=== PATIENT | male | born 1970 | race Two or more races ===

== ENCOUNTER 2017-02-07 08:16 | Inpatient (IN) | payer OTHER ==
[2017-02-07] VITALS (9 sets, daily range): BP systolic 139–164; BP diastolic 90–114
[~2017-02-07] VITALS: Ht 175.3 cm; Wt 93.0 kg
[2017-02-07] MEDS ORDERED: NKM (08:23)
[2017-02-07] MEDS ORDERED: Albuterol ud Inhalation HHN ONE (08:30)
[2017-02-07] MEDS ORDERED: Enalaprilat 2.5mg/2ml Inj IV ONE (08:30)
[2017-02-07] MEDS ORDERED: Aspirin Baby 81mg ORAL ONE (08:30)
[2017-02-07 08:57] LABS: APPEARANCE,URINE CLEAR; KETONES,URINE NEGATIVE (NEGATIVE); LEUKOCYTE ESTERASE ,URINE 1+ (NEGATIVE); NITRITE,URINE NEGATIVE (NEGATIVE); PH,URINE 7 (4.5-8.0); PROTEIN,URINE NEGATIVE (NEGATIVE); UROBILINOGEN,URINE 1 MG/DL (0.0-1.0)
[2017-02-07 08:59] LABS: MEAN CORPUSCULAR HEMOGLOBIN 33.1 PG (27.0-31.0); MEAN CORPUSCULAR HGB CONC 32.3 G/DL (32.0-36.0); MEAN CORPUSCULAR VOLUME 102 FL (80-99); MEAN PLATELET VOLUME 11.5 FL (6.5-10.1); PLATELET COUNT 57 K/UL (150-450); RED BLOOD COUNT 4.64 M/UL (4.70-6.10); RED CELL DISTRIBUTION WIDTH 12.7 % (11.6-14.8); WHITE BLOOD COUNT 4.5 K/UL (4.8-10.8)
[2017-02-07 09:17] LABS: BACTERIA,URINE OCCASIONAL /HPF; RBC,URINE 0-2 /HPF (0 - 0); SQUAMOUS EPITHELIAL CELL,UR OCCASIONAL /LPF (NONE/OCC); WBC,URINE 0-2 /HPF (0 - 0)
[2017-02-07 09:21] LABS: BAND NEUTROPHILS % (MANUAL) 0 % (0-8); BASOPHILS % (MANUAL) 0 % (0-2); EOSINOPHILS % (MANUAL) 1 % (0-3); LYMPHOCYTES % (MANUAL) 19 % (20-45); MACROCYTES 1+; NEUTROPHILS % (MANUAL) 68 % (45-75); PLATELET ESTIMATE DECREASED; PLATELET MORPHOLOGY NORMAL; TOTAL CELLS COUNTED 100
[2017-02-07 09:28] LABS: ALANINE AMINOTRANSFERASE 84 U/L (3-41); ALBUMIN/GLOBULIN RATIO 0.8 (1.0-2.7); ANION GAP 10 (5-15); ASPARTATE AMINO TRANSFERASE 189 U/L (5-40); CARBON DIOXIDE 29 mEQ/L (20-30); CHLORIDE 104 mEQ/L (98-107); CREATININE 0.7 mg/dL (0.7-1.2); GLOMERULAR FILTRATION RATE > 60 mL/min (>60); HEMOLYSIS 10; SODIUM 143 mEQ/L (135-145); TOTAL PROTEIN 7.3 g/dL (6.6-8.7)
--- NOTE | 2017-02-07 09:28 | Emergency Room Report ---
History of Present Illness General Chief Complaint: Chest Pain Source: Patient Present Illness HPI Patient is a 46-year-old male who presented after increased chest pain. Patient gradual onset of symptoms. The patient reports having had generalized body aches. This been present for approximately 2 months intermittently. Patient associated shortness of breath. Patient reports having prior history of hypertension but does not take medications. Patient reports being a smoker. He denies any fever. Allergies: Coded Allergies: No Known Allergies (Unverified , 02/07/17) Patient History Past Medical History: see triage record Reviewed Nursing Documentation: PMH: Agreed, PSxH: Agreed Nursing Documentation-PMH Past Medical History: No History, Except For Hx Hypertension: Yes Hx Diabetes: Yes Review of Systems All Other Systems: negative except mentioned in HPI Physical Exam Vital Signs Date Time Temp Pulse Resp B/P (MAP) Pulse Ox O2 Delivery O2 Flow Rate FiO2 02/07/17 08:20 97.0 95 23 164/104 98 Room Air 02/07/17 09:00 21 Sp02 EP Interpretation: reviewed, normal General Appearance: normal inspection, well appearing, no apparent distress, alert, GCS 15 Head: atraumatic ENT: normal ENT inspection, hearing grossly normal, normal voice Neck: normal inspection, full range of motion, supple, no bony tend Respiratory: normal inspection, normal breath sounds, no respiratory distress, no retraction, wheezing Cardiovascular #1: regular rate, rhythm, no edema Gastrointestinal: normal inspection, normal bowel sounds, non tender, soft, no guarding, no hernia Genitourinary: no CVA tenderness Musculoskeletal: normal inspection, back normal, normal range of motion, swelling Neurologic: normal inspection, alert, oriented x3, responsive, twx operator III-XII nml as tested, speech normal Psychiatric: normal inspection, judgement/insight normal, mood/affect normal Skin: normal inspection, normal color, no rash Medical Decision Making Diagnostic Impression: Primary Impression: COPD (chronic obstructive pulmonary disease) Additional Impressions: CHF (congestive heart failure) Thrombocytopenia ER Course Patient presented for chest pain. Differential diagnosis included but was not limited to acute coronary syndrome, pulmonary embolism, pneumonia, aortic dissection, shingles, pneumothorax, aortic dissection, esophageal rupture, pericarditis. Because of complexity of patient's case laboratory testing and imaging studies were ordered.EKG interpreted by me showed normal sinus rhythm with a rate of [address] or T wave changes.Patient was given breathing treatment as well as IV Lasix . The patient was also given aspirin. Patient subsequently noted to have evidence of thrombocytopenia. Dr. Munoz was contacted for inpatient management due to need for inpatient monitoring and treatment. Labs Test 02/07/17 08:17 02/07/17 08:18 02/07/17 08:30 Urine Opiates Screen Negative (NEGATIVE) Urine Barbiturates Screen Negative (NEGATIVE) Phencyclidine (PCP) Screen Negative (NEGATIVE) Urine Amphetamines Screen Negative (NEGATIVE) Urine Benzodiazepines Screen Negative (NEGATIVE) Urine Cocaine Screen Negative (NEGATIVE) Urine Marijuana (THC) Screen Positive (NEGATIVE) Urine Color Pale yellow Urine Appearance Clear Urine pH 7 (4.5-8.0) Urine Specific [place] 1.010 (1.005-1.035) Urine Protein Negative (NEGATIVE) Urine Glucose (UA) 2+ (NEGATIVE) Urine Ketones Negative (NEGATIVE) Urine Occult Blood Negative (NEGATIVE) Urine Nitrite Negative (NEGATIVE) Urine Bilirubin Negative (NEGATIVE) Urine Urobilinogen 1 MG/DL (0.0-1.0) Urine Leukocyte Esterase 1+ (NEGATIVE) Urine RBC 0-2 /HPF (0 - 0) Urine WBC 0-2 /HPF (0 - 0) Urine Squamous Epithelial Cells Occasional /LPF Urine Bacteria Occasional /HPF (NONE) White Blood Count 4.5 K/UL (4.8-10.8) Red Blood Count 4.64 M/UL (4.70-6.10) Hemoglobin 15.4 G/DL (14.2-18.0) Hematocrit 47.5 % (42.0-52.0) Mean Corpuscular Volume 102 FL (80-99) Mean Corpuscular Hemoglobin 33.1 PG (27.0-31.0) Mean Corpuscular Hemoglobin Concent 32.3 G/DL (32.0-36.0) Red Cell Distribution Width 12.7 % (11.6-14.8) Platelet Count 57 K/UL (150-450) Mean Platelet Volume 11.5 FL (6.5-10.1) Neutrophils (%) (Auto) % (45.0-75.0) Lymphocytes (%) (Auto) % (20.0-45.0) Monocytes (%) (Auto) % (1.0-10.0) Eosinophils (%) (Auto) % (0.0-3.0) Basophils (%) (Auto) % (0.0-2.0) Differential Total Cells Counted 100 Neutrophils % (Manual) 68 % (45-75) Lymphocytes % (Manual) 19 % (20-45) Monocytes % (Manual) 12 % (1-10) Eosinophils % (Manual) 1 % (0-3) Basophils % (Manual) 0 % (0-2) Band Neutrophils 0 % (0-8) Platelet Estimate Decreased Platelet Morphology Normal Macrocytosis 1+ Sodium Level 143 mEQ/L (135-145) Potassium Level 4.0 mEQ/L (3.4-4.9) Chloride Level 104 mEQ/L (98-107) Carbon Dioxide Level 29 mEQ/L (20-30) Anion Gap 10 (5-15) Blood Urea Nitrogen 11 mg/dL (7-23) Creatinine 0.7 mg/dL (0.7-1.2) Estimat Glomerular Filtration Rate > 60 mL/min (>60) Glucose Level 193 mg/dL (74-106) Total Bilirubin 0.8 mg/dL (0.0-1.2) Aspartate Amino Transf (AST/SGOT) 189 U/L (5-40) Alanine Aminotransferase (ALT/SGPT) 84 U/L (3-41) Alkaline Phosphatase 111 U/L (40-129) Total Creatine Kinase 172 U/L (38-174) Troponin I 0.004 ng/mL (0.000-0.056) Pro-B-Type Natriuretic Peptide 12 pg/mL (0-125) Total Protein 7.3 g/dL (6.6-8.7) Albumin 3.4 g/dL (3.5-5.2) Globulin 3.9 g/dL Albumin/Globulin Ratio 0.8 (1.0-2.7) EKG Diagnostic Results Rate: normal - 95 Rhythm: NSR ST Segments: no acute changes Rhythm Strip Diag. Results EP Interpretation: yes Rhythm: NSR, no PVC's, no ectopy Last Vital Signs Date Time Temp Pulse Resp B/P (MAP) Pulse Ox O2 Delivery O2 Flow Rate FiO2 02/07/17 09:23 95 20 154/102 100 Room Air 02/07/17 09:05 21 02/07/17 08:20 97.0 Status: unchanged Condition: Serious Referrals: NOT CHOSEN IPA/MD,REFERRING (PCP) Silvio Leggett Feb 07, 2017 09:28
--- NOTE | 2017-02-07 10:07 | Diagnostic Imaging Report ---
Indication: Shortness of breath Technique: XRAY CHEST 1 V Comparison: None Findings: Cardiac silhouette is prominent. There is central pulmonary vascular congestion and mild interstitial edema. There is a chronic appearing right eighth rib fracture deformity. There is no obvious pleural effusion. Impression: Cardiomegaly with central pulmonary vascular congestion and mild interstitial edema.
[2017-02-07 10:15] LABS: CALCIUM 9.2 mg/dL (8.6-10.2)
[2017-02-07 10:25] LABS: CKMB 3.5 ng/mL (< 6.7)
[2017-02-07] MEDS ORDERED: Nitroglycerin Subl 0.4mg tab SL PRN (15:45)
[2017-02-07] MEDS: NovoLOG Insulin Flexpen SUBQ SCH ×2 (17:06→21:00)
[2017-02-07] MEDS ORDERED: Morphine Sulfate 2mg/ml Inj IVP PRN (17:15)
--- NOTE | 2017-02-07 19:54 | Cardiology Progress Note ---
Assessment/Plan Assessment/Plan The patient is seen and examined, full consult note is dictated. Objective Last 24 Hour Vital Signs Date Time Temp Pulse Resp B/P (MAP) Pulse Ox O2 Delivery O2 Flow Rate FiO2 02/07/17 18:19 97.7 02/07/17 16:00 114 02/07/17 15:45 97.7 94 20 155/112 97 Room Air 02/07/17 15:14 83 20 159/114 100 Room Air 02/07/17 14:11 97.0 82 20 163/94 97 Room Air 02/07/17 14:10 82 20 162/99 97 Room Air 02/07/17 13:23 82 20 163/94 97 Room Air 02/07/17 11:38 82 20 163/103 100 Room Air 02/07/17 09:23 95 20 154/102 100 Room Air 02/07/17 09:05 110 22 100 Room Air 21 02/07/17 09:00 76 20 Room Air 02/07/17 09:00 21 02/07/17 09:00 76 20 97 Room Air 21 02/07/17 08:44 175/94 02/07/17 08:27 95 23 Room Air 02/07/17 08:27 23 164/104 98 Room Air 02/07/17 08:20 97.0 95 23 164/104 98 Room Air Intake and Output 02/07/17 02/08/17 19:00 07:00 Intake Total 240 ml Output Total 900 ml Balance -660 ml Intake Oral 240 ml Output Urine Total 900 ml Laboratory Tests Test 02/07/17 08:17 02/07/17 08:18 02/07/17 08:30 Urine Opiates Screen Negative (NEGATIVE) Urine Barbiturates Screen Negative (NEGATIVE) Phencyclidine (PCP) Screen Negative (NEGATIVE) Urine Amphetamines Screen Negative (NEGATIVE) Urine Benzodiazepines Screen Negative (NEGATIVE) Urine Cocaine Screen Negative (NEGATIVE) Urine Marijuana (THC) Screen Positive (NEGATIVE) H Urine Color Pale yellow Urine Appearance Clear Urine pH 7 (4.5-8.0) Urine Specific [place] 1.010 (1.005-1.035) Urine Protein Negative (NEGATIVE) Urine Glucose (UA) 2+ (NEGATIVE) H Urine Ketones Negative (NEGATIVE) Urine Occult Blood Negative (NEGATIVE) Urine Nitrite Negative (NEGATIVE) Urine Bilirubin Negative (NEGATIVE) Urine Urobilinogen 1 MG/DL (0.0-1.0) H Urine Leukocyte Esterase 1+ (NEGATIVE) H Urine RBC 0-2 /HPF (0 - 0) H Urine WBC 0-2 /HPF (0 - 0) Urine Squamous Epithelial Cells Occasional /LPF Urine Bacteria Occasional /HPF (NONE) White Blood Count 4.5 K/UL (4.8-10.8) L Red Blood Count 4.64 M/UL (4.70-6.10) L Hemoglobin 15.4 G/DL (14.2-18.0) Hematocrit 47.5 % (42.0-52.0) Mean Corpuscular Volume 102 FL (80-99) H Mean Corpuscular Hemoglobin 33.1 PG (27.0-31.0) H Mean Corpuscular Hemoglobin Concent 32.3 G/DL (32.0-36.0) Red Cell Distribution Width 12.7 % (11.6-14.8) Platelet Count 57 K/UL (150-450) L Mean Platelet Volume 11.5 FL (6.5-10.1) H Neutrophils (%) (Auto) % (45.0-75.0) Lymphocytes (%) (Auto) % (20.0-45.0) Monocytes (%) (Auto) % (1.0-10.0) Eosinophils (%) (Auto) % (0.0-3.0) Basophils (%) (Auto) % (0.0-2.0) Differential Total Cells Counted 100 Neutrophils % (Manual) 68 % (45-75) Lymphocytes % (Manual) 19 % (20-45) L Monocytes % (Manual) 12 % (1-10) H Eosinophils % (Manual) 1 % (0-3) Basophils % (Manual) 0 % (0-2) Band Neutrophils 0 % (0-8) Platelet Estimate Decreased L Platelet Morphology Normal Macrocytosis 1+ Sodium Level 143 mEQ/L (135-145) Potassium Level 4.0 mEQ/L (3.4-4.9) Chloride Level 104 mEQ/L (98-107) Carbon Dioxide Level 29 mEQ/L (20-30) Anion Gap 10 (5-15) Blood Urea Nitrogen 11 mg/dL (7-23) Creatinine 0.7 mg/dL (0.7-1.2) Estimat Glomerular Filtration Rate > 60 mL/min (>60) Glucose Level 193 mg/dL (74-106) H Calcium Level 9.2 mg/dL (8.6-10.2) Total Bilirubin 0.8 mg/dL (0.0-1.2) Aspartate Amino Transf (AST/SGOT) 189 U/L (5-40) H Alanine Aminotransferase (ALT/SGPT) 84 U/L (3-41) H Alkaline Phosphatase 111 U/L (40-129) Total Creatine Kinase 172 U/L (38-174) Creatine Kinase MB 3.5 ng/mL (< 6.7) Creatine Kinase MB Relative Index 2.0 Troponin I 0.004 ng/mL (0.000-0.056) Pro-B-Type Natriuretic Peptide 12 pg/mL (0-125) Total Protein 7.3 g/dL (6.6-8.7) Albumin 3.4 g/dL (3.5-5.2) L Globulin 3.9 g/dL Albumin/Globulin Ratio 0.8 (1.0-2.7) L WALLY LACY Feb 07, 2017 19:54
[2017-02-07] MEDS ORDERED: Heparin 5000 units/ml inj SUBQ SCH (21:00)
[2017-02-07] MEDS ORDERED: Morphine Sulfate 2mg/ml Inj IVP ONE (22:00)
[2017-02-07] MEDS: Solu-MEDROL 40mg Inj IVP SCH (22:21)
[2017-02-07] MEDS: Azithromycin 250mg tab ORAL SCH (22:21)
[2017-02-07] MEDS: dilTIAZem HCl CD 180mg cap ORAL SCH (22:26)
[2017-02-08] VITALS (8 sets, daily range): BP systolic 127–160; BP diastolic 72–115
[2017-02-08] MEDS ORDERED: Morphine Sulfate 2mg/ml Inj IVP PRN (00:30)
[2017-02-08] MEDS: NovoLOG Insulin Flexpen SUBQ SCH ×4 (06:10→20:56)
[2017-02-08] MEDS: Solu-MEDROL 40mg Inj IVP SCH ×4 (06:12→17:11)
[2017-02-08 06:32] LABS: MEAN CORPUSCULAR HEMOGLOBIN 34.9 PG (27.0-31.0); MEAN CORPUSCULAR VOLUME 103 FL (80-99); MEAN PLATELET VOLUME 12.7 FL (6.5-10.1); PLATELET COUNT 64 K/UL (150-450); RED BLOOD COUNT 4.33 M/UL (4.70-6.10); RED CELL DISTRIBUTION WIDTH 12.6 % (11.6-14.8); WHITE BLOOD COUNT 3.6 K/UL (4.8-10.8)
[2017-02-08 06:55] LABS: HEMOGLOBIN A1C 5.9 % (< 6.0)
[2017-02-08 07:02] LABS: ALANINE AMINOTRANSFERASE 83 U/L (3-41); ALBUMIN/GLOBULIN RATIO 0.6 (1.0-2.7); ANION GAP 16 (5-15); ASPARTATE AMINO TRANSFERASE 114 U/L (5-40); CALCIUM 9.3 mg/dL (8.6-10.2); CARBON DIOXIDE 24 mEQ/L (20-30); CHLORIDE 96 mEQ/L (98-107); CHOLESTEROL 230 mg/dL (< 200); CHOLESTEROL/HDL RATIO 4.9 (3.3-4.4); CREATININE 0.8 mg/dL (0.7-1.2); GLOMERULAR FILTRATION RATE > 60 mL/min (>60); HEMOLYSIS 6; POTASSIUM 4.2 mEQ/L (3.4-4.9); SODIUM 136 mEQ/L (135-145); TOTAL PROTEIN 9.1 g/dL (6.6-8.7)
[2017-02-08 07:25] LABS: BILIRUBIN,DIRECT 0.4 mg/dL (0.1-0.3)
--- NOTE | 2017-02-08 08:34 | History & Physical ---
History and Physical History & Physicial patient seen and examined. Dictation completed. Eleanor Munoz MD Feb 08, 2017 08:34
--- NOTE | 2017-02-08 08:40 | General Progress Note ---
Assessment/Plan Status: stable Assessment/Plan 1- Exertional SOB 2- DM 3- HTN Plan: Cardiology consulted pending echo Subjective ROS Limited/Unobtainable: No Cardiovascular: Reports: chest pain Respiratory: Reports: no symptoms Allergies: Coded Allergies: No Known Allergies (Unverified , 02/07/17) Objective Last 24 Hour Vital Signs Date Time Temp Pulse Resp B/P (MAP) Pulse Ox O2 Delivery O2 Flow Rate FiO2 02/08/17 07:51 96.1 70 20 127/72 98 Room Air 02/08/17 06:30 82 139/90 02/08/17 04:00 99.1 83 20 148/103 96 Room Air 21 02/08/17 03:53 74 02/08/17 02:46 83 20 148/103 Room Air 02/08/17 01:01 160/115 02/08/17 00:15 99.1 84 20 160/115 96 Room Air 02/07/17 22:26 85 158/98 02/07/17 20:17 95.0 83 20 158/98 95 Room Air 02/07/17 20:05 83 02/07/17 18:19 97.7 02/07/17 16:00 114 02/07/17 15:45 97.7 94 20 155/112 97 Room Air 02/07/17 15:14 83 20 159/114 100 Room Air 02/07/17 14:11 97.0 82 20 163/94 97 Room Air 02/07/17 14:10 82 20 162/99 97 Room Air 02/07/17 13:23 82 20 163/94 97 Room Air 02/07/17 11:38 82 20 163/103 100 Room Air 02/07/17 09:23 95 20 154/102 100 Room Air 02/07/17 09:05 110 22 100 Room Air 21 02/07/17 09:00 76 20 Room Air 02/07/17 09:00 21 02/07/17 09:00 76 20 97 Room Air 02/07/17 08:44 175/94 Intake and Output 02/08/17 02/09/17 19:00 07:00 Intake Total 240 ml Balance 240 ml Intake Oral 240 ml Laboratory Tests 02/07/17 21:10: Troponin I 0.007 02/08/17 05:15: Troponin I 0.005, White Blood Count 3.6L, Red Blood Count 4.33L, Hemoglobin 15.1 , Hematocrit 44.4, Mean Corpuscular Volume 103H, Mean Corpuscular Hemoglobin 34.9H, Mean Corpuscular Hemoglobin Concent 34.0, Red Cell Distribution Width 12.6, Platelet Count 64L, Mean Platelet Volume 12.7H, Neutrophils (%) (Auto) , Lymphocytes (%) (Auto) , Monocytes (%) (Auto) , Eosinophils (%) (Auto) , Basophils (%) (Auto) , Neutrophils % (Manual) [Pending], Lymphocytes % (Manual) [Pending], Platelet Estimate [Pending], Platelet Morphology [Pending], Sodium Level 136, Potassium Level 4.2, Chloride Level 96L, Carbon Dioxide Level 24, Anion Gap 16H, Blood Urea Nitrogen 11, Creatinine 0.8, Estimat Glomerular Filtration Rate > 60, Glucose Level 287H, Hemoglobin A1c 5.9, Calcium Level 9.3 , Magnesium Level 1.7, Total Bilirubin 1.2, Direct Bilirubin 0.4H, Aspartate Amino Transf (AST/SGOT) 114H, Alanine Aminotransferase (ALT/SGPT) 83H, Alkaline Phosphatase 96, Total Protein 9.1H, Albumin 3.5, Globulin 5.6, Albumin/Globulin Ratio 0.6L, Triglycerides Level 131, Cholesterol Level 230H, LDL Cholesterol 156.800H, HDL Cholesterol 47, Cholesterol/HDL Ratio 4.9H Height (Feet): 5 Height (Inches): 9.00 Weight (Pounds): 180 General Appearance: no apparent distress EENT: PERRL/EOMI Neck: supple Cardiovascular: normal rate Respiratory/Chest: lungs clear Abdomen: soft Extremities: non-tender Neurologic: drain tiler II-XII grossly normal Eleanor Munoz MD Feb 08, 2017 08:40
[2017-02-08] MEDS: dilTIAZem HCl CD 180mg cap ORAL SCH (09:00)
[2017-02-08] MEDS: Aspirin EC 81mg tab ORAL SCH (09:28)
[2017-02-08] MEDS: Azithromycin 250mg tab ORAL SCH (09:28)
[2017-02-08 11:04] LABS: BAND NEUTROPHILS % (MANUAL) 0 % (0-8); BASOPHILS % (MANUAL) 1 % (0-2); EOSINOPHILS % (MANUAL) 0 % (0-3); LYMPHOCYTES % (MANUAL) 14 % (20-45); MACROCYTES 1+; NEUTROPHILS % (MANUAL) 81 % (45-75); PLATELET ESTIMATE DECREASED; PLATELET MORPHOLOGY NORMAL; TOTAL CELLS COUNTED 100
[2017-02-08] MEDS: Ketorolac 30mg Inj IV PRN ×2 (12:02→21:05)
--- NOTE | 2017-02-08 23:10 | Cardiology Progress Note ---
Assessment/Plan Assessment/Plan 1. Dyspnea likely due to acute COPD exacerbation, continue Solumedrol inhalers, IV ABx. 2. HTN, on HCTZ and Diltiazem. 3. DM, benefits from ASA and statin long-term. Subjective Subjective Sinus rhythm at 74. Objective Last 24 Hour Vital Signs Date Time Temp Pulse Resp B/P (MAP) Pulse Ox O2 Delivery O2 Flow Rate FiO2 02/08/17 20:11 74 02/08/17 16:00 76 02/08/17 15:25 97.5 75 20 136/96 98 Room Air 02/08/17 12:00 72 02/08/17 11:25 96.9 72 20 153/98 94 Room Air 02/08/17 09:00 70 127/72 02/08/17 08:00 79 02/08/17 07:51 96.1 70 20 127/72 98 Room Air 02/08/17 06:30 82 139/90 02/08/17 04:00 99.1 83 20 148/103 96 Room Air 21 02/08/17 03:53 74 02/08/17 02:46 83 20 148/103 Room Air 02/08/17 01:01 160/115 02/08/17 00:15 99.1 84 20 160/115 96 Room Air Intake and Output 02/08/17 02/09/17 19:00 07:00 Intake Total 490 ml Balance 490 ml Intake Oral 490 ml # Voids 3 2D Echo: LVEF 50-55%, Grade I LVDD, Mild [place] Laboratory Tests Test 02/08/17 05:15 02/08/17 11:40 White Blood Count 3.6 K/UL (4.8-10.8) L Red Blood Count 4.33 M/UL (4.70-6.10) L Hemoglobin 15.1 G/DL (14.2-18.0) Hematocrit 44.4 % (42.0-52.0) Mean Corpuscular Volume 103 FL (80-99) H Mean Corpuscular Hemoglobin 34.9 PG (27.0-31.0) H Mean Corpuscular Hemoglobin Concent 34.0 G/DL (32.0-36.0) Red Cell Distribution Width 12.6 % (11.6-14.8) Platelet Count 64 K/UL (150-450) L Mean Platelet Volume 12.7 FL (6.5-10.1) H Neutrophils (%) (Auto) % (45.0-75.0) Lymphocytes (%) (Auto) % (20.0-45.0) Monocytes (%) (Auto) % (1.0-10.0) Eosinophils (%) (Auto) % (0.0-3.0) Basophils (%) (Auto) % (0.0-2.0) Differential Total Cells Counted 100 Neutrophils % (Manual) 81 % (45-75) H Lymphocytes % (Manual) 14 % (20-45) L Monocytes % (Manual) 4 % (1-10) Eosinophils % (Manual) 0 % (0-3) Basophils % (Manual) 1 % (0-2) Band Neutrophils 0 % (0-8) Platelet Estimate Decreased L Platelet Morphology Normal Macrocytosis 1+ Sodium Level 136 mEQ/L (135-145) Potassium Level 4.2 mEQ/L (3.4-4.9) Chloride Level 96 mEQ/L (98-107) L Carbon Dioxide Level 24 mEQ/L (20-30) Anion Gap 16 (5-15) H Blood Urea Nitrogen 11 mg/dL (7-23) Creatinine 0.8 mg/dL (0.7-1.2) Estimat Glomerular Filtration Rate > 60 mL/min (>60) Glucose Level 287 mg/dL (74-106) H Hemoglobin A1c 5.9 % (< 6.0) Calcium Level 9.3 mg/dL (8.6-10.2) Magnesium Level 1.7 mg/dL (1.7-2.5) Total Bilirubin 1.2 mg/dL (0.0-1.2) Direct Bilirubin 0.4 mg/dL (0.1-0.3) H Aspartate Amino Transf (AST/SGOT) 114 U/L (5-40) H Alanine Aminotransferase (ALT/SGPT) 83 U/L (3-41) H Alkaline Phosphatase 96 U/L (40-129) Troponin I 0.005 ng/mL (0.000-0.056) 0.001 ng/mL (0.000-0.056) Total Protein 9.1 g/dL (6.6-8.7) H Albumin 3.5 g/dL (3.5-5.2) Globulin 5.6 g/dL Albumin/Globulin Ratio 0.6 (1.0-2.7) L Triglycerides Level 131 mg/dL (< 150) Cholesterol Level 230 mg/dL (< 200) H LDL Cholesterol 156.800 mg/dL (< 100) H HDL Cholesterol 47 mg/dL (> 60) Cholesterol/HDL Ratio 4.9 (3.3-4.4) H Objective General Appearance: normal inspection, well appearing, no apparent distress, alert, GCS 15 Head: atraumatic ENT: normal ENT inspection, hearing grossly normal, normal voice Neck: normal inspection, No JVD. Respiratory: normal inspection, normal breath sounds, no respiratory distress, no retraction, wheezing Cardiovascular: regular rate, rhythm, no murmurs, gallops or rubs Gastrointestinal: normal inspection, normal bowel sounds, non tender, soft, no guarding, no hernia Genitourinary: no CVA tenderness Musculoskeletal: no swelling, clubbing or cyanosis WALLY LACY Feb 08, 2017 23:10
[2017-02-09] VITALS: BP 137/96
[2017-02-09] MEDS: Solu-MEDROL 40mg Inj IVP SCH ×4 (00:42→17:46)
--- NOTE | 2017-02-09 03:39 | History and Physical Report ---
DATE OF ADMISSION: 02/07/2017 SOURCE OF INFORMATION: The patient and EMR. HISTORY OF PRESENT ILLNESS: The patient is a 46-year-old male. He reported that for the last one and a half years, he has chest pain. He describes the pain as being precordial with no radiation. He reported that the pain gets worse by taking deep breath in and out. On top of it, the patient reported that he has not been able to seek medical advice as he had been taking care of his mother. At the time of evaluation, the patient denies any loss of consciousness or any dizziness. No shortness of breath. No abnormal bleeding. REVIEW OF SYSTEMS: All 12 elements of review of systems are reviewed with the patient. Pertinent positives and negatives are reported as above. MEDICATIONS: Home medications are reported none. Hospital medications including but not limited to amlodipine, aspirin, azithromycin, diltiazem, and sliding scale of insulin. PAST MEDICAL HISTORY: COPD, CHF, hypertension, actively smoking more than 20 pack-year. SOCIAL HISTORY: The patient is single. The patient is positive for cigarette smoking about average of 1 pack for the last 20 years. Denies history of illicit drug abuse. ALLERGIES: NKDA. FAMILY HISTORY: Reviewed and noncontributory. PHYSICAL EXAMINATION: VITAL SIGNS: Blood pressure 140/90, temperature 98.2, and pulse oximetry 98% on room air. HEAD AND NECK: Atraumatic and normocephalic. CHEST: Clear to auscultation. HEART: S1 and S2 heard. Regular rate and rhythm. ABDOMEN: Soft. No organomegaly. MUSCULOSKELETAL: No gross focal motor deficit. NEUROLOGY: The patient is awake, alert, and oriented x3. LABORATORY DATA: Laboratory results dated 02/07/2017, showed WBC 4.7, hemoglobin 15.4, and platelets 57. ALT 83 and AST 114. Urine drug screen positive for THC. ASSESSMENT AND PLAN: 1. Exertional shortness of breath. Differential diagnosis is cardiogenic versus upper respiratory tract infection. 2. Pancytopenia. 3. Substance abuse (positive for marijuana). 4. Abnormal liver function test, possibility of cirrhosis cannot be excluded. 5. Diabetes type 2, status unknown. 6. Gastrointestinal and deep vein thrombosis prophylaxis. PLAN OF CARE: We will initiate IV antibiotic. Cardiology, Dr. Hawthorne, has been notified. We will check A1c, BNP, and lipid panel. Eleanor Munoz M.D. DR: BROWN JOB#: [id number] CC:
[2017-02-09 04:00] VITALS: BP 143/93
[2017-02-09] MEDS: NovoLOG Insulin Flexpen SUBQ SCH ×4 (06:07→20:15)
[2017-02-09 08:00] VITALS: BP 147/99
--- NOTE | 2017-02-09 08:10 | Cardiology Report ---
APPROVED REPORT EXAM: Two-dimensional and M-mode echocardiogram with Doppler and color Doppler. INDICATION SOB M-Mode DIMENSIONS IVSd1.1 (0.7-1.1cm)Left Atrium (MM)3.9 (1.6-4.0cm) LVDd5.0 (3.5-5.6cm)Aortic Root3.2 (2.0-3.7cm) PWd0.9 (0.7-1.1cm)Aortic Cusp Exc.2.0 (1.5-2.0cm) LVDs2.9 (2.5-4.0cm) PWs1.6 cm Normal left ventricular chamber size, systolic function and wall motion. Left ventricular ejection fraction estimated to be 55-60%. No evidence of left ventricular hypertrophy. No evidence of pericardial or pleural effusion. All other cardiac chamber sizes are within normal limits. Focal aortic valve sclerosis with adequate cusp excursion. Thickened mitral valve leaflets with normal excursion. Mild mitral annulus and aortic root calcification. Pulmonic valve not well visualized. Normal tricuspid valve structure. IVC is not obtainable. A color flow and spectral Doppler study was performed and revealed: No aortic regurgitation. No mitral regurgitation. Mitral diastolic velocities suggest reduced left ventricular relaxation c/w diastolic dysfunction grade 1. No tricuspid regurgitation. Pulmonic regurgitation present.
[2017-02-09] MEDS: dilTIAZem HCl CD 180mg cap ORAL SCH (08:56)
[2017-02-09] MEDS: Aspirin EC 81mg tab ORAL SCH (08:56)
[2017-02-09] MEDS: Azithromycin 250mg tab ORAL SCH (08:56)
[2017-02-09] MEDS: Ketorolac 30mg Inj IV PRN ×2 (08:58→21:02)
--- NOTE | 2017-02-09 09:02 | Consultation ---
DATE OF CONSULTATION: 02/07/2017 CARDIOLOGY CONSULTATION REFERRING PHYSICIAN: Eleanor Munoz M.D. REASON FOR CONSULTATION: Management of shortness of breath. HISTORY OF PRESENT ILLNESS: The patient is a very unfortunate 46-year-old gentleman, who presents to the hospital with increasing chest pain, tightness, progressive worsening shortness of breath for the past 2 months intermittently, associated with generalized body pain. The patient denies any prior history of coronary artery disease or congestive heart failure. Cardiology consultation was made at the request of Dr. Munoz for evaluation and assessment of shortness of breath and chest pain as mentioned above. PAST MEDICAL HISTORY: Hypertension and diabetes. PAST SURGICAL HISTORY: None. ALLERGIES: No known drug allergies. LIST OF MEDICATIONS: None. FAMILY HISTORY: No premature coronary artery disease or sudden cardiac in the first-degree relatives. REVIEW OF SYSTEMS: A 12-system review done essentially negative except what mentioned in the history of present illness. PHYSICAL EXAMINATION: VITAL SIGNS: Blood pressure is 164/104, pulse of 95, respirations 23, O2 saturation 98%, and temperature 97.2 degrees Fahrenheit. GENERAL: The patient is a very pleasant 46-year-old gentleman, in no apparent respiratory distress. Alert and oriented x4. HEENT: Atraumatic and normocephalic. Pupils are equal, round, and reactive to light and accommodation. Extraocular muscles intact. NECK: JVP is less than 5 cm. No carotid bruit. Carotid upstroke is 2+ bilaterally. CARDIOVASCULAR: Normal S1 and S2. Regular rate and rhythm. No murmurs, gallops, or rubs. PMI is at 4th intercostal space at the midclavicular line. LUNGS: Diminished breath sounds. bilateral expiratory rhonchi. ABDOMEN: Soft, nontender, nondistended. No hepatosplenomegaly. Positive bowel sounds. EXTREMITIES: No evidence of edema, clubbing, or cyanosis. LABORATORY FINDINGS: WBC 4.4, hemoglobin of 15.4, hematocrit 47.5, and platelet count 67. Sodium was 143, potassium was 4.0, chloride 104, bicarbonate 29, BUN 11, creatinine 0.7, and glucose 193. Calcium 9.2. Troponin-I was 0.007. ProBNP was 12. Toxicology showed positive marijuana in the urine. IMAGING STUDY: Chest x-ray showed cardiomegaly with central pulmonary vascular congestion and mild interstitial edema. A 12-lead electrocardiogram was significant for sinus rhythm at a rate of [address] and T-wave abnormalities. ASSESSMENT AND PLAN: 1. Acute exacerbation of chronic obstructive pulmonary disease. This is the finding on clinical examination. Chest x-ray was reviewed, and in fact, is consistent with mild congestive heart failure, however, a normal beta-natriuretic peptide. It essentially rules out heart failure. A 2D echocardiography will shed light onto this diagnosis. Further therapeutic and diagnostic decision will be based on result of echocardiography. 2. Chest pain. This could be secondary to hypertension. The patient presents with systolic blood pressure and diastolic blood pressure at 164/104 mmHg. I would focus on treating the patient's blood pressure at this time. I would personally believe that chest tightness is due to acute respiratory pathology including exacerbation of chronic obstructive pulmonary disease. Likelihood of coronary artery disease in this patient would be intermediate. 3. Thrombocytopenia. I will discuss with Dr. Munoz. He agrees to start the patient on Solu-Medrol IV as well as antibiotic Zithromax for treatment of acute exacerbation of chronic obstructive pulmonary disease. I would like to thank, Dr. Munoz, for the courtesy of this consultation. Alden Hawthorne M.D. DR: SALVADOR JOB#: [id number] CC:
--- NOTE | 2017-02-09 09:28 | General Progress Note ---
Assessment/Plan Status: stable Assessment/Plan 1. Exertional shortness of breath. Differential diagnosis is cardiogenic versus upper respiratory tract infection. 2. Pancytopenia. 3. Substance abuse (positive for marijuana). 4. Abnormal liver function test, possibility of cirrhosis cannot be excluded. 5. Diabetes type 2, status unknown. 6. Gastrointestinal and deep vein thrombosis prophylaxis. Plan: Once clear by Cardiology may be followed as outpatient Subjective ROS Limited/Unobtainable: No Constitutional: Reports: no symptoms HEENT: Reports: no symptoms Allergies: Coded Allergies: No Known Allergies (Unverified , 02/07/17) Objective Last 24 Hour Vital Signs Date Time Temp Pulse Resp B/P (MAP) Pulse Ox O2 Delivery O2 Flow Rate FiO2 02/09/17 08:56 68 147/99 02/09/17 08:00 97.6 68 18 147/99 94 Room Air 02/09/17 04:00 77 02/09/17 04:00 97.0 68 20 143/93 97 Room Air 02/09/17 00:00 98.1 75 20 137/96 95 Room Air 02/08/17 23:50 70 02/08/17 20:30 97.6 79 20 148/83 94 Room Air 02/08/17 20:11 74 02/08/17 16:00 76 02/08/17 15:25 97.5 75 20 136/96 98 Room Air 02/08/17 12:00 72 02/08/17 11:25 96.9 72 20 153/98 94 Room Air Intake and Output 02/09/17 02/10/17 19:00 07:00 Intake Total 240 ml Balance 240 ml Intake Oral 240 ml Laboratory Tests 02/08/17 11:40: Troponin I 0.001 Height (Feet): 5 Height (Inches): 9.00 Weight (Pounds): 180 General Appearance: no apparent distress EENT: PERRL/EOMI Neck: supple Cardiovascular: normal rate Respiratory/Chest: lungs clear Abdomen: soft Extremities: non-tender Neurologic: 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
--- NOTE | 2017-02-09 11:01 | Diagnostic Imaging Report ---
APPROVED REPORT CPT Code: 32334 Present Symptoms Comments: R/O DVT BILATERAL: Imaging reveals a patent deep venous system bilaterally. There is no evidence of thrombus within the femoral, popliteal or tibial segments. The greater saphenous veins are also within normal limits. Doppler indicates normal spontaneous flow within these segments.
[2017-02-09 11:48] VITALS: BP 152/97
--- NOTE | 2017-02-09 14:51 | Diagnostic Imaging Report ---
Indication:Abdominal pain. Hepatitis C. Technique: Grayscale and duplex Doppler imaging of the abdomen performed. Comparison: None Findings: The liver is heterogeneous and shows increased echogenicity measuring about 19-20 cm. There are micronodular is present. Consider followup CT with contrast to exclude small mass lesions. Findings may be related to chronic liver disease. Spleen measures 15 cm. The visualized part of the pancreas is unremarkable. Tail is not seen. Kidneys are unremarkable bilaterally. The gallbladder is contracted. CBD measures between 5 and 6 mm. There is no ascites.. Impression: Evidence of chronic liver disease with fatty infiltration, heterogeneous echotexture and enlargement. Heterogeneity may be on the basis of chronic disease. Infiltrative lesions not excluded. Further evaluation recommended with contrast CT. Splenomegaly Atherosclerotic disease
[2017-02-09 16:00] VITALS: BP 135/86
[2017-02-09 20:00] VITALS: BP 141/72
[2017-02-10] VITALS: BP 145/92
[2017-02-10] MEDS: Solu-MEDROL 40mg Inj IVP SCH ×3 (00:03→12:48)
[2017-02-10 04:00] VITALS: BP 141/86
[2017-02-10] MEDS: NovoLOG Insulin Flexpen SUBQ SCH ×2 (05:38→12:42)
[2017-02-10 08:00] VITALS: BP 141/98
[2017-02-10] MEDS: Azithromycin 250mg tab ORAL SCH (09:22)
[2017-02-10] MEDS: Aspirin EC 81mg tab ORAL SCH (09:23)
[2017-02-10] MEDS: dilTIAZem HCl CD 180mg cap ORAL SCH (09:25)
[2017-02-10] MEDS: Ketorolac 30mg Inj IV PRN ×3 (09:43→13:26)
--- NOTE | 2017-02-10 11:04 | General Progress Note ---
Assessment/Plan Status: stable Assessment/Plan 1. Exertional shortness of breath. Differential diagnosis is cardiogenic versus upper respiratory tract infection. 2. Pancytopenia. 3. Substance abuse (positive for marijuana). 4. Abnormal liver function test, possibility of cirrhosis cannot be excluded. 5. Diabetes type 2, status unknown. 6. Gastrointestinal and deep vein thrombosis prophylaxis. Plan: Once clear by Cardiology may be followed as outpatient Subjective ROS Limited/Unobtainable: No Constitutional: Reports: no symptoms Cardiovascular: Reports: no symptoms Allergies: Coded Allergies: No Known Allergies (Unverified , 02/07/17) Objective Last 24 Hour Vital Signs Date Time Temp Pulse Resp B/P (MAP) Pulse Ox O2 Delivery O2 Flow Rate FiO2 02/10/17 09:25 88 141/98 02/10/17 08:00 97.5 88 20 141/98 95 Room Air 02/10/17 04:00 97.9 79 22 141/86 100 Room Air 02/10/17 04:00 60 02/10/17 01:03 97.9 02/10/17 00:00 98.6 95 20 145/92 96 Room Air 95 02/10/17 00:00 71 02/09/17 21:32 97.9 02/09/17 20:00 97.9 79 22 141/72 100 Room Air 02/09/17 20:00 91 02/09/17 16:00 69 02/09/17 16:00 97.7 75 18 135/86 96 Room Air 02/09/17 12:00 70 02/09/17 11:48 97.3 68 18 152/97 93 Room Air Height (Feet): 5 Height (Inches): 9.00 Weight (Pounds): 205 General Appearance: no apparent distress EENT: PERRL/EOMI Neck: supple Cardiovascular: normal rate Respiratory/Chest: lungs clear Abdomen: soft Edema: trace edema 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
[2017-02-10 11:48] VITALS: BP 149/97
[2017-02-10] MEDS ORDERED: ASPIRIN EC81 MG ORAL (14:50)
[2017-02-10] MEDS ORDERED: CARDIZEM CD180 MG ORAL (14:53)
[2017-02-10] MEDS ORDERED: HYDROCHLOROTHIA50 MG ORAL (14:54)
--- NOTE | 2017-02-12 11:43 | Discharge Summary ---
Discharge Summary Hospital Course Date of Admission Feb 07, 2017 at 11:02 Date of Discharge Feb 10, 2017 at 15:00 Admitting Diagnosis chest pain, chf HPI Quique Hyde is a 46 year old male who was admitted on Feb 07, 2017 at 11:02 for Chest Pain,Congestive Heart Failure Hospital Course [id number] Discharge Discharge Disposition Patient was discharged to Home (01) Discharge Diagnoses: Margaux Grant NP Feb 12, 2017 11:42
--- NOTE | 2017-02-12 23:09 | Cardiology Report ---
APPROVED REPORT EKG Measurement Heart [id number] ME [id number] Normal sinus rhythm Possible Left atrial enlargement Borderline ECG
--- NOTE | 2017-02-12 23:47 | Discharge Summary 2 SIG ---
DATE OF ADMISSION: 02/07/2017 DATE OF DISCHARGE: 02/10/2017 BRIEF HOSPITAL COURSE: The patient is a 46-year-old male, who reported that for the past [id number] years, he has been having chest pain. The pain was described to be precordial with no radiation. Pain was described to get worse with taking deep breaths and has not sought any medical attention for his symptoms. The patient is a smoker and reports history of hypertension, however, does not take medications. On evaluation at ED, EKG showed normal sinus rhythm at a rate of [address] to T-wave changes. He was given aspirin. Blood work was stable. Urine toxicology was negative except for marijuana. He was noted to have thrombocytopenia, platelet count of 57,000. He underwent cardiac evaluation. BNP was normal. Echocardiogram done showed ejection fraction of 55% to 60% with no aortic regurgitation. He had elevated liver function tests. Abdominal ultrasound showed evidence of chronic liver disease with fatty infiltration and presence of splenomegaly. He was given Zithromax for exacerbation of chronic obstructive pulmonary disease and was given IV Solu-Medrol. Troponin remained negative. He was eventually discharged home. Stressed need for compliance with medication. to follow-up with PMD. FINAL DIAGNOSES: 1. Exertional shortness of breath. 2. Pancytopenia. 3. Substance abuse. 4. Abnormal liver function tests. 5. Diabetes type 2. 6. Acute exacerbation of chronic obstructive pulmonary disease. 7. Chest pain could be secondary to hypertension. 8. Thrombocytopenia. DISCHARGE DISPOSITION: The patient was discharged home. DISCHARGE MEDICATIONS: Refer to medication list. FOLLOWUP: The patient was advised to follow up with PMD in a week. Eleanor Munoz M.D. I have been assigned to dictate discharge summary on this account and I was not involved in the patient's management. Margaux Grant N.P. DR: TIN JOB#: [id number] CC: EDEN
== END 2017-02-10 15:00 | disposition home or self-care (01) | DRG 191 ==
LOC: EMR 08:40 → 2E 11:02 → EDBEDREQ 13:15
DX: J44.1 Chronic obstructive pulmonary disease with (acute) exacerbation (principal); D61.818 Other pancytopenia; I11.0 Hypertensive heart disease with heart failure; E11.9 Type 2 diabetes mellitus without complications; F17.210 Nicotine dependence, cigarettes, uncomplicated; F12.10 Cannabis abuse, uncomplicated; R94.5 Abnormal results of liver function studies; Z79.4 Long term (current) use of insulin
CPT/HCPCS: 36415; 71010; 76700; 80053; 80061; 80300; 81003; 82248; 82550; 82553; 82962; 83036; 83735; 83880; 84484; 85007; 85025; 93005; 93306; 93970; 94640; 94664; 99285; J1815